=== PATIENT | female | born 1950 | race Caucasian/White ===

== ENCOUNTER → 2018-04-10 10:17 | Outpatient (CLI) | payer MEDICARE, OTHER, SELFPAY ==
--- NOTE | 2018-04-10 | DI.RAD.S_ITS ---
PROCEDURE: XR HAND LT MIN 3V INDICATIONS: PAIN IN UNSPECIFIED HAND TECHNIQUE: 3 views of the hand(s) acquired. COMPARISON: [facility], CR, XR HAND RT MIN 3V, 04/10/2018, 10:07. FINDINGS: Bones: No fractures or dislocations. Carpal bones are normally aligned. No suspicious bony lesions. Mild degenerative interphalangeal osteoarthritis, mild to moderate degeneration at the base of the first metacarpal. Overall the degenerative changes show no evidence of erosive arthritis and appear less pronounced than that seen on the right. Soft tissues: No suspicious soft tissue calcifications. IMPRESSION: Osteoarthritis along the left hand as noted, less than that seen on the right during plain film imaging on the right same day. Dictated by: Omkar Mcfarland M.D. on 04/10/2018 at 11:00 Approved by: Omkar Mcfarland M.D. on 04/10/2018 at 11:01
--- NOTE | 2018-04-10 | DI.RAD.S_ITS ---
PROCEDURE: XR HAND RT MIN 3V INDICATIONS: PAIN IN UNSPECIFIED HAND TECHNIQUE: 3 views of the hand(s) acquired. COMPARISON: None. FINDINGS: Bones: No fractures or dislocations. Carpal bones are normally aligned. No suspicious bony lesions. Mild degenerative osteoarthritis is seen along the inner phalangeal joints, without erosive arthritis. There is also mild radiocarpal joint osteoarthritis. Moderate to moderately severe degeneration can be seen at the base of the first metacarpal as it articulates against the trapezium. No trauma found. Soft tissues: No suspicious soft tissue calcifications. IMPRESSION: Generally there is relatively mild degenerative osteoarthritis over the inner phalangeal joints and the radiocarpal articulation but moderately severe to severe osteoarthritis is present at the base of the first metacarpal and the adjacent apposing trapezium. Dictated by: Omkar Mcfarland M.D. on 04/10/2018 at 10:59 Approved by: Omkar Mcfarland M.D. on 04/10/2018 at 11:00
== END ==
PROVIDERS: Family Provider Physician Assistant; PCP Physician Assistant; Visit Provider Physician Assistant
DX: M19.042 Primary osteoarthritis, left hand (principal); M19.041 Primary osteoarthritis, right hand; M79.641 Pain in right hand; M79.642 Pain in left hand
CPT/HCPCS: 73130

== ENCOUNTER → 2018-12-15 10:57 | Outpatient (CLI) | payer MEDICARE, OTHER, SELFPAY ==
--- NOTE | 2018-12-15 | DI.RAD.S_ITS ---
PROCEDURE: XR LUMBAR SPINE 2-3V INDICATIONS: Pain in left hip TECHNIQUE: 3 views of the lumbar spine were acquired. COMPARISON: None. FINDINGS: Bones: 5 [id number] vertebrae are present. There is grade 1 anterolisthesis of L4 on L5. No vertebral body compression fractures. No suspicious bony lesions. Degenerative disc disease is present, moderate to severe at T11-T12, L2-L3 and L3-L4, mild at T12-L1 and L4-L5. Moderate to severe facet arthropathy at L4-L5 and L5-S1. Soft tissues: Overlying bowel gas pattern is normal. No suspicious soft tissue calcifications. IMPRESSION: Degenerative disc and facet disease. Dictated by: Noemí Oliver M.D. on 12/15/2018 at 12:56 Approved by: Noemí Oliver M.D. on 12/16/2018 at 9:57
--- NOTE | 2018-12-15 | DI.RAD.S_ITS ---
PROCEDURE: XR HIP W PEL IF DONE LT 2V INDICATIONS: Pain in left hip TECHNIQUE: 2 views of the hip were acquired. COMPARISON: None. FINDINGS: Bones: There is left hip arthroplasty. There is lucency around the proximal femoral prosthesis stem. No fractures or dislocations. No suspicious bony lesions. The visualized pelvic ring appears intact. Soft tissues: No suspicious soft tissue calcifications or masses. IMPRESSION: Left hip arthroplasty with a prosthesis. There is lucency around the proximal femoral prosthesis stem concerning for prosthesis loosening. Dictated by: Noemí Oliver M.D. on 12/15/2018 at 12:58 Approved by: Noemí Oliver M.D. on 12/16/2018 at 10:02
== END ==
PROVIDERS: Family Provider Physician Assistant; PCP Physician Assistant; Visit Provider Physician Assistant
DX: M25.552 Pain in left hip (principal); M54.89 Other dorsalgia; M51.34 Other intervertebral disc degeneration, thoracic region; M51.35 Other intervertebral disc degeneration, thoracolumbar region; M51.36 Other intervertebral disc degeneration, lumbar region; M47.816 Spondylosis without myelopathy or radiculopathy, lumbar region; M47.817 Spondylosis without myelopathy or radiculopathy, lumbosacral region; Z96.642 Presence of left artificial hip joint
CPT/HCPCS: 72100; 73502

== ENCOUNTER → 2020-03-08 07:10 | Outpatient (CLI) | payer MEDICARE, OTHER, SELFPAY ==
[2020-03-08 08:29] LABS: Add Manual Diff / Slide Review NO; Basophils Absolute Auto 100 /uL (0-100); Basophils Percent Auto 2.1 % (0-2); Eosinophils Absolute Auto 200 /uL (0-450); Eosinophils Percent Auto 4.5 % (2-4); Hematocrit 37.3 % (36-46); Hemoglobin 12.7 g/dL (12.0-16.0); Lymphocytes Absolute Auto 1700 /uL (1100-4500); Mean Corpuscular HGB Conc 34.1 % (30-36); Mean Corpuscular Hemoglobin 30.9 PG (26-34); Mean Corpuscular Volume 90.6 fL (80-100); Monocytes Absolute Auto 400 /uL (0-900); Monocytes Percent Auto 8.6 % (3-14); Neutrophils Absolute Auto 2200 /uL (1500-7000); Neutrophils Percent Auto 47.8 % (50-75); Platelet Count 212 X10^3/uL (150-400); Red Blood Cell Count 4.11 X10^6/uL (4.0-5.2); Red Cell Distribution Width 12.3 % (11.6-14.8); White Blood Cell Count 4.7 X10^3/uL (4.5-11.0)
[2020-03-08 09:05] LABS: Albumin 4.1 g/dL (3.5-5.0); Albumin Globulin Ratio 1.7 (1.0-2.8); Alkaline Phosphatase 70 U/L (38-126); Aspartate Aminotransferase 34 IU/L (14-36); BUN Creatinine Ratio 25.8 (6-22); Bilirubin Total 0.3 mg/dL (0.2-1.3); Blood Urea Nitrogen 17 mg/dL (7-17); Calcium 9.4 mg/dL (8.4-10.2); Carbon Dioxide 29 mmol/L (22-32); Chloride 104 mmol/L (98-107); Cholesterol 199 mg/dL (140-199); Estimated Glomerular Filt Rate > 60.0 mL/min (>60); Globulin 2.4 g/dL (1.7-4.1); Glucose 92 mg/dL (80-110); HDL Cholesterol 52 mg/dL (40-60); HEMOLYSIS < 15 (0-50); LDL Cholesterol Calculated 133 mg/dL (<100); Potassium 4.6 mmol/L (3.4-5.1); Sodium 137 mmol/L (137-145); Total Protein 6.5 g/dL (6.3-8.2); Triglycerides 71 mg/dL (35-150)
[2020-03-08 14:30] LABS: Alanine Aminotransferase 22 IU/L (<35)
== END ==
PROVIDERS: Family Provider Physician Assistant; PCP Student in an Organized Health Care Education/Training Program; Referring Provider Student in an Organized Health Care Education/Training Program; Visit Provider Student in an Organized Health Care Education/Training Program
DX: E78.2 Mixed hyperlipidemia (principal)
CPT/HCPCS: 36415; 80053; 80061; 85025